=== PATIENT | male | born 1960 | race Caucasian/White ===

== ENCOUNTER 2018-02-03 09:07 | Day surgery (SDC) | payer OTHER ==
[2018-02-03] MEDS ORDERED: BENZOCAINE UNIT DOSE SPRAY HURRICAINE MM ONE (09:13)
[2018-02-03] MEDS ORDERED: MIDAZOLAM 2 MG/2 ML VIAL IVP ONE (09:13)
[2018-02-03] MEDS ORDERED: NS 500 ML IV ONE (09:13)
[2018-02-03] MEDS ORDERED: fentaNYL 100 MCG/2 ML INJ IVP ONE (09:13)
[2018-02-03] MEDS ORDERED: ATROPINE SULFATE 1 MG/10 ML SYR ONE (10:43)
[2018-02-03] MEDS ORDERED: PROPOFOL 200 MG/20 ML VIAL ONE ×3 (10:46→11:07)
--- NOTE | 2018-02-03 10:46 | PDHPUP ---
History & Physical Update H&P update statement: This history and physical update is based on an assessment of the patient which was completed after admission or registration (within 24 hours), but prior to the surgery/procedure. H&P update: H&P reviewed & patient examined, no change in patient's condition since H&P completed
--- NOTE | 2018-02-03 10:51 | PDANEPAE ---
ANE History of Present Illness here for ELEANOR ANE Past Medical History - Cardiovascular History Hx Hypertension: Yes Hx Arrhythmias: No Hx Chest Pain: No Hx Coronary Artery / Peripheral Vascular Disease: No Hx CHF / Valvular Disease: No Hx Palpitations: No Cardiovascular History Comment: history of CVA with known PFO - Pulmonary History Hx COPD: No Hx Asthma/Reactive Airway Disease: No Hx Recent Upper Respiratory Infection: No Hx Oxygen in Use at Home: No Hx Sleep Apnea: No - Neurologic History Hx Cerebrovascular Accident: Yes Hx Seizures: No Hx Dementia: No - Endocrine History Hx Diabetes: No Hypothyroid: No Hyperthyroid: No Obesity: no - Renal History Hx Renal Disorders: No - Liver History Hx Hepatic Disorders: No - Neurological & Psychiatric Hx Hx Neurological and Psychiatric Disorders: No - Cancer History Hx Cancer: No ANE Review of Systems Review of systems is: negative Review of Systems: - Exercise capacity Exercise capacity: >=4 METS ANE Patient History - Allergies Allergies/Adverse Reactions: No Known Allergies Allergy (Unverified 03/29/13 21:42) - Home Medications Home medications: home medication list seen and reviewed Home Medications: Aspirin [Aspirin 325 mg (OTC)] 325 mg PO HS 03/30/13 [Last Taken 03/29/13] Atorvastatin Calcium [Lipitor 20 mg (RX)] 20 mg PO HS 03/30/13 [Last Taken 03/29] Cholecalciferol Vit D3 [Vitamin D3 2000 units (OTC)] 2,000 units PO DAILY [Last Taken 03/29/13] Clonidine HCl 0.1 mg PO DAILY 03/30/13 [Last Taken 03/29/13] Lisinopril [Zestril 20 mg (RX)] 20 mg PO HS 03/30/13 [Last Taken 03/29/13] Lisinopril/Hctz 20/12.5MG [Zestoretic/Prinzide] 1 ea PO DAILY 03/30/13 [Last Taken 03/29/13] Multivitamins [Tab-A-Shane] 1 each PO DAILY 03/30/13 [Last Taken 03/29/13] Emmaus-3 Fatty Acids [Fish Oil 1000 mg (OTC)] 1,000 mg PO DAILY 03/30/13 [Last Taken 03/29/13] Mail Order Biller Completed 03/30/13 03/30/13 [Last Taken 03/30/13 08:17] amLODIPine BESYLATE [Norvasc] 10 mg PO HS 03/30/13 [Last Taken 03/29/13] - NPO status NPO Status: no food or drink >8 hours - Smoking Hx Smoking Status: Never smoked ANE Labs/Vital Signs - Vital Signs Vital Signs: reviewed preoperatively; see RN documention for details Height: 185.42 cm Weight: 83.007 kg ANE Physical Exam - Airway Neck exam: FROM Mallampati Score: Class 1 - Pulmonary Pulmonary: no respiratory distress - Cardiovascular Cardiovascular: regular rate and rhythym - ASA Status ASA Status: II ANE Anesthesia Plan Anesthesia Plan: GA with mask
--- NOTE | 2018-02-03 11:25 | POSTANESTH ---
Post Anesthetic Evaluation Cardiovascular Status: Normal, Stable Respiratory Status: Normal, Stable Level of Consciousness/Mental Status: Can Participate in Eval, Moderately Sleepy Pain Control: Adequate, Prn Tx Ordered Nausea/Vomiting Control: Adequate, Prn Tx Ordered Complications Possibly Related to Anesthesia: None Noted
--- NOTE | 2018-02-21 09:42 | ECHO ---
[email or web address] [address] [address] Main: [phone] Fax: Transesophageal Echocardiography Name: ODILIA QURESHI MR#: [id number] Study Date: 02/03/2018 Study Time: 10:55 AM Date of : 1960 Age: 57 year(s) Height: ( ) Weight: ( ) BSA: Gender: Male Examination: ELEANOR Indication: Evaluate for PFO Image Quality: Contrast: Requested by: Lesly Jean-Baptiste Heart Rate: Rhythm: BP: / Procedure Staff Class A Regional Truck Driver: Darek Rm RDCS Reading Physician: Lesly Jean-Baptiste MD Requesting Provider: ELEANOR Exam Details Patient Consent: Risks, alternatives of procedure explained to patient, informed consent obtained. Conclusions: Normal size left ventricle. Normal global systolic LV function. No regional wall motion abnormality. Normal size right ventricle. The left atrium is normal in size. An agitated saline study was performed and was negative for intracardiac shunting. No significant valvular disease Measurements: Chambers Valvular Assessment AV/MV Valvular Assessment TV/PV Normal Normal Normal Name Value Range Name Value Range Name Value Range Additional Measurements: Findings: Left Ventricle: Normal size left ventricle. No LV hypertrophy. Normal global systolic LV function. No regional wall motion abnormality. Right Ventricle: Normal size right ventricle. Left Atrium: Patient: ODILIA QURESHI Study Date: 02/03/2018 Page 1 of 2 10:55 AM The left atrium is normal in size. An agitated saline study was performed and was negative for intracardiac shunting. Right Atrium: The right atrium is normal in size. Mitral Valve: The mitral valve is normal in appearance and function. Aortic Valve: The aortic valve is normal in appearance and function. Tricuspid Valve: The tricuspid valve is normal in appearance and function. Pulmonic Valve: The pulmonic valve is normal in appearance and function. Aorta: The aorta is normal. Pericardium: No pericardial effusion. l1n (No Signature Object) Patient: ODILIA QURESHI Study Date: 02/03/2018 Page 2 of 2 10:55 AM [id number]
== END 2018-02-03 12:41 | disposition home or self-care (01) ==
LOC: FCATH 09:07
PROVIDERS: ATTEND Internal Medicine Cardiovascular Disease
PROC: B246ZZ4 Ultrasonography of Right and Left Heart, Transesophageal (ICD-10-PCS; principal; 2018-02-03)
DX: Q21.1 Atrial septal defect (principal); I25.10 Atherosclerotic heart disease of native coronary artery without angina pectoris; I10 Essential (primary) hypertension
CPT/HCPCS: J0461; J2704

== ENCOUNTER 2018-10-06 12:00 | Inpatient (IN) | payer OTHER ==
[2018-10-06] MEDS ORDERED: ACET/CAFFEINE/BUTA FIORICET 1 EACH TAB PO PRN (14:39)
--- NOTE | 2018-10-06 16:22 | GHP ---
POST ADMISSION PHYSICIAN EVALUATION AND REHABILITATION TREATMENT PLAN DATE OF ADMISSION: 10/06/2018 DATE OF EVALUATION: 10/06/2018 TIME OF EVALUATION: 1455. REFERRING FACILITY: [facility]. IMPAIRMENT GROUP: 1.2. DATE OF ONSET: 09/28/2018. REFERRING PHYSICIAN: Dr. Goodwin. CONSULTING PHYSICIANS: He was seen by Neurology and Neurosurgery Services. REHABILITATION DIAGNOSIS: Debility status post hemorrhagic stroke of the left temporal and parietal lobes. ETIOLOGIC DIAGNOSIS: Right body involvement (left brain). HISTORY OF PRESENT ILLNESS: This patient was admitted to [facility] on 09/28/2018, with difficulty speaking. His systolic blood pressure was in the 170s. He had brain imaging with a head and neck CT and CT angiogram, which showed an acute intraparenchymal hemorrhage in the left temporal and parietal lobes. He initially needed IV nicardipine to control his blood pressure, but subsequently his blood pressure was well controlled. In the hospital his amlodipine/olmesartan combination was discontinued. Amlodipine was increased from 5 mg to 10 mg daily and losartan was initiated at 25 mg daily. Once he was cleared by Neurosurgery, aspirin was resumed. He had been taking it previously and it was resumed at 81 mg daily. He was otherwise medically stable and ready for rehabilitation. LABS AND STUDIES IN THE HOSPITAL: On admission, CBC was normal. Troponin was negative. Comprehensive metabolic panel revealed normal renal function, electrolytes, and liver functions. MRI of the brain on 09/29/2018, showed left temporal parietal parenchymal hematoma measuring 3.5 x 6.1 x 4 cm. It appeared to be benign with no suggestion of underlying mass or vascular malformation. There was a small patch of acute to subacute ischemia in the left parietal periventricular white matter adjacent to the hemorrhage. There were 3 foci of acute to subacute ischemia in the left frontal lobe concerning for embolic infarcts. Septic emboli were considered to be in the differential and there was a small volume of intraventricular hemorrhage in the occipital horns. Laboratory studies most recently that I have available were on 10/04/2018. A basic metabolic profile was done. He had a slightly low potassium at 3.4 and he had a slightly elevated blood urea nitrogen at 22. Otherwise, renal function and electrolytes were normal. Blood cultures were drawn due to the concern for septic emboli and these remained sterile. PRECAUTIONS: He has aspiration precautions. ACTIVE COMORBIDITIES: He has no active tier 1, tier 2 or tier 3 comorbidities. PAST MEDICAL HISTORY: 1. Basal ganglia cerebrovascular accident. 2. Hypertension. 3. Kidney stone. 4. Rosacea. 5. Solitary thyroid nodule. 6. Otitis externa. PAST SURGICAL HISTORY: He had an inguinal hernia repair, a lithotripsy and tonsillectomy and adenoidectomy. PRE-HOSPITAL MEDICATIONS: 1. Aspirin of unknown dose. 2. Amlodipine/olmesartan 5 mg/20 mg daily. 3. Atorvastatin 20 mg daily. 4. Levothyroxine 75 mcg daily. 5. Multivitamin with folic acid. 6. Angie-3 fatty acids daily. ADMISSION MEDICATIONS: 1. Fioricet 1 p.o. q.4 hours p.r.n. 2. Acetaminophen 500 mg p.o. three times daily p.r.n. 3. Amlodipine 10 mg p.o. daily. 4. Aspirin 81 mg p.o. daily. 5. Atorvastatin 20 mg p.o. daily. 6. Levothyroxine 75 mcg p.o. daily. 7. Losartan 25 mg p.o. daily. 8. Angie-3 fatty acids 1000 mg p.o. daily. ALLERGIES: There are no known drug allergies. PSYCHOSOCIAL HISTORY: He is . He lives with his . He works from home in [employer]. He is a nonsmoker. He uses occasional alcohol. FAMILY HISTORY: His father had lung cancer. There is high blood pressure in his siblings. REVIEW OF SYSTEMS: He reports double vision intermittently. It is relieved by covering either eye. He otherwise denies vision changes. He has headaches which can be severe. There was nausea with the headaches and he was briefly treated with a scopolamine patch, but it was discontinued. There was no vomiting. He denies fevers or chills. He denies weight change. He denies nausea, vomiting, constipation, or diarrhea. He denies cough or dyspnea. He denies weakness, numbness or tingling of the extremities. He is not aware of difficulty swallowing. He is not in pain. He is aware of difficulty with expressive language. Otherwise, a 10-point review of systems is negative. PHYSICAL EXAM: VITAL SIGNS: Blood pressure is 162/96, heart rate is 53, respiratory rate is 18, oxygen saturation is 95% on room air, temperature is 37.1 degrees centigrade. His weight is 84.4 kg for a body mass index of 24.5. GENERAL: This is a well-nourished, well-developed man, sitting in a chair, dressed in street clothes, cooperative and in no acute distress. HEENT: Extraocular movements are intact. Pupils are equal, round, reactive to light. Mucous membranes are moist. Dentition is in good condition. He has a moderately crowded airway, Mallampati class 3. NECK: Supple. HEART: There is a regular rate and rhythm. There is a 1/6 to 2/6 murmur audible at the right sternal border. There is no jugular venous distention and no edema. LUNGS: Clear to auscultation bilaterally. ABDOMEN: Soft, nontender, nondistended with normoactive bowel sounds and no hepatosplenomegaly. EXTREMITIES: There is no cyanosis, clubbing, or edema. NEUROLOGIC: He is alert and oriented x3. Cranial nerves 2-12 are grossly intact. No focal weakness. Sensation is intact to light touch. There is no extinction to double simultaneous stimulation. Finger-nose testing is normal bilaterally. He appears to have loss of peripheral vision in all hunter, possibly more prominent in the right lower quadrant. There is very mild pronator drift of the right upper extremity. CURRENT LEVEL OF FUNCTION PER THE PRE-ADMISSION SCREEN: Regarding diet, feeding , and swallowing, he was on a regular diet with thin liquids, but he was to remain upright for 20-30 minutes after meals. Grooming was done with standby assist with no device. He required minimal to moderate cues for safety. Bed mobility was done with standby assist. Transfers required contact guard assist with no device or standby assist with a 4-wheeled walker. He scored 39/56 on the Tamayo balance inventory. His endurance was fair. He was able to ambulate 100 feet with minimal assist and no device or 1200 feet standby assist with a 4- wheeled walker. He had loss of balance to the right with multi tasking, head turns, or pivoting on the right foot. He was able to climb and descend 2 steps with standby assist using a rail. He had expressive aphasia and mild receptive aphasia. There was a right footdrop. On today's exam, there are no significant changes from the preadmission screen. IMPRESSION: This is a 58-year-old man who had a prior basal ganglia stroke in 2011 on the left side. He had hypertension which he reports was well controlled and he was taking aspirin as well as atorvastatin. However, he had acute symptoms of difficulty speaking. He was evaluated at [facility] and diagnosed with a left temporal and parietal hemorrhagic stroke on 2017. His most significant sequela of the stroke is expressive aphasia. He also has balance impairment and left footdrop. He has had titration of antihypertensives, but continues to have an elevated blood pressure. reports that he has had echocardiograms x3 since his initial stroke. Two of them were transthoracic and did not show any abnormalities, and 1 was transesophageal and showed a small patent foramen ovale. MR imaging raised the possibility of an embolic CVA and the differential diagnosis included septic emboli. Blood cultures ruled out any systemic infection. Normal white blood cell count was also reassuring in that regard. He was followed with serial brain imaging and cleared by Neurosurgery for any surgical indication. Aspirin was restarted. He was medically stable and ready for inpatient rehabilitation. His goal is to complete a rehabilitation stay and then return home with his family and supportive services. For a safe discharge he will need to complete basic expressive language tasks with 80% accuracy. He will need to achieve independence with grooming, bed mobility and eating. He will need to achieve modified independence for dressing, transfers and ambulation with the least restrictive device. He will need to be able to negotiate a flight of stairs with modified independence. He will need to have adequate control of his blood pressure. He will have therapy with physical therapy, occupational therapy, and speech and language pathology for 60 minutes per day for each discipline on 5-7 days of the week. His expected duration of stay is 10-14 days. It is expected that upon discharge he will continue to benefit from home health services including nursing, social work, OT and PT as well as a stroke support group. PLAN: 1. Hemorrhagic cerebrovascular accident of the left parietal and temporal lobes on 09/28/2018, with expressive aphasia, right foot drop and balance impairment. PT and OT to optimize mobility and activities of daily living toward the independent to modified independent level. 2. Expressive aphasia. Assessment and treatment per Speech and Language Pathology. 3. Hypertension with an elevated blood pressure upon arrival at the hospital. Continue amlodipine 10 mg daily, and I will add losartan at 25 mg at bedtime starting this evening. If this achieves adequate blood pressure control it can probably be consolidated into a single daily dose of 50 mg. Continue to monitor and adjust blood pressure medications as indicated. 4. Secondary prophylaxis of cerebrovascular accident. Continue blood pressure control, atorvastatin and aspirin. Given conflicting history regarding patent foramen ovale, consider further workup with Cardiology after discharge to evaluate whether he would benefit from a procedure regarding the patent foramen ovale. 5. Headaches. He has been prescribed Fioricet. If he has persistent headaches , consider initiating a preventive medications such as amitriptyline or nortriptyline at bedtime. 6. Hypothyroidism. Continue levothyroxine. FOLLOWUP: He will need to see his PCP after discharge. There are no specific referrals in the discharge paperwork. He should consider followup with Cardiology as well as Neurology. He should have a repeat MRI of the brain in about 1 month and result can be evaluated by the neurosurgeon who is following him; in the hospital it was Dr. Loyd. /[id number]/MODL MTDD
--- NOTE | 2018-10-06 17:20 | PDOREHIP ---
Admission [facility] - Admission - 3 Day Assessment Period Admission Date/Day 1: 10/06/18 Day 2: 10/07/18 Day 3: 10/08/18 - Active Diagnoses Comorbidities and Co-existing Conditions at Admission: 22202. None of the Above - Skin Conditions Unhealed Pressure Ulcer (1 or more/Stage 1 or >)-Admission: 0. No # Stage 1 Pressure Ulcers-Admission: 0 # Stage 2 Pressure Ulcers-Admission: 0 # Stage 3 Pressure Ulcers-Admission: 0 # Stage 4 Pressure Ulcers-Admission: 0 # Unstageable Pressure Ulcers (Non-remove Dress)-Admission: 0 # Unstageable Pressure Ulcers (Slough/Eschar)-Admission: 0 # Unstageable Pressure Ulcers (Deep Tissue Injury)-Admission: 0
[2018-10-06] MEDS: ACETAMINOPHEN 500 MG TAB PO PRN (19:32)
[2018-10-06] MEDS: LOSARTAN POTASSIUM 25 MG TAB PO SCH (20:00)
[2018-10-07] MEDS: LEVOTHYROXINE 75 MCG TAB PO SCH (05:54)
[2018-10-07] MEDS: LOSARTAN POTASSIUM 25 MG TAB PO SCH ×2 (08:39→19:57)
[2018-10-07] MEDS: ATORVASTATIN CALCIUM 20 MG TAB PO SCH (08:39)
[2018-10-07] MEDS: OMEGA-3 FATTY ACIDS 1,000 MG CAP PO SCH (08:39)
[2018-10-07] MEDS: ASPIRIN EC 81 MG TAB PO SCH (08:40)
[2018-10-07] MEDS ORDERED: Herbals/Supplements -Info Only PO SCH (09:00)
--- NOTE | 2018-10-07 09:31 | SOAPPROG ---
SOAP Progress Note Assessment/Plan: Assessment: Hemorrhagic cerebrovascular accident of the left parietal and temporal lobes on 09/28/2018 resulting in expressive aphasia and impaired balance. Physical occupational therapy to optimize mobility and activities of daily living towards the independent to modified independent level. Expressive aphasia. Assessment and treatment per speech and language pathology Hypertension. Current blood pressure medications include amlodipine 10 mg daily and losartan 25 mg twice daily. This morning's blood pressure 159/96. Losartan was increased to 25 twice daily yesterday so will continue to monitor for now but may need to increase dosage of BP meds if blood pressure does not normalize in the next 24-48 hours. Secondary prophylaxis of cerebrovascular accident. Continue blood pressure control, atorvastatin and aspirin. Given conflicting history regarding patent foramen ovale, consider further workup with Cardiology after discharge to evaluate whether he would benefit from a procedure regarding possible patent foramen ovale. Headaches. He has been prescribed Fioricet. Will continue to monitor. Consider adding amitriptyline or nortriptyline at bedtime if headaches persist. Hypothyroidism. Continue levothyroxine. Footdrop-no evidence on this morning's exam of right foot drop. Follow-up: He will need to have follow-up with his primary care physician after discharge. Consider cardiology follow-up for further evaluation of patent foramen ovale. Follow-up with neurology. Repeat MRI of the brain in about 4 weeks. Plan: 10/07/18 09:25 Subjective: No problems reported by nursing staff. He denies headaches. He does report some frustration regarding expressive aphasia. Objective: Vital Signs Temp Pulse Resp BP Pulse Ox 36.8 C 57 L 18 159/96 H 96 10/07/18 08:35 10/07/18 08:35 10/07/18 08:35 10/07/18 08:40 10/07/18 08:35 10/06/18 10/07/18 10/08/18 05:59 05:59 05:59 Intake Total 440 Balance 440 Physical Exam - Physical Exam General Appearance: WD/WN, alert, no apparent distress Respiratory: lungs clear, normal breath sounds Abdomen: non-tender, soft Skin: normal color, warm/dry Extremities: No swelling, No Keerthi's sign Neuro/Psych: alert, speech abnormalities (Expressive aphasia), No oriented x 3, No motor weakness (On manual muscle testing while seated he has grossly normal upper and lower extremity strength. No evidence of right foot drop) ICD10 Worksheet Patient Problems: Problems Problem Status Onset Hemorrhagic cerebrovascular accident (CVA) Acute
[2018-10-08] MEDS: LEVOTHYROXINE 75 MCG TAB PO SCH (06:17)
[2018-10-08] MEDS: ATORVASTATIN CALCIUM 20 MG TAB PO SCH (10:04)
[2018-10-08] MEDS: LOSARTAN POTASSIUM 25 MG TAB PO SCH ×2 (10:05→20:03)
[2018-10-08] MEDS: OMEGA-3 FATTY ACIDS 1,000 MG CAP PO SCH (10:05)
[2018-10-08] MEDS: ASPIRIN EC 81 MG TAB PO SCH (10:07)
--- NOTE | 2018-10-08 11:49 | SOAPPROG ---
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 Physical occupational therapy to optimize mobility and activities of daily living towards the independent to modified independent level. Already making significant gains in ambulation, currently ambulating without assistive devices. Physical therapy reports he has made significant gains in balance and passed his Tamayo test today. Showing better concentration in performing fine motor skills and occupational therapy Expressive and receptive aphasia. Assessment and treatment per speech and language pathology Hypertension. Current blood pressure medications include amlodipine 10 mg daily and losartan 25 mg twice daily. This morning's blood pressure 122/88. Losartan was increased to [address] Morgan. Will continue to monitor for now but may need to increase dosage of BP meds if blood pressure does not normalize in the next 24-48 hours. Secondary prophylaxis of cerebrovascular accident. Continue blood pressure control, atorvastatin and aspirin. Given conflicting history regarding patent foramen ovale, consider further workup with Cardiology after discharge to evaluate whether he would benefit from a procedure regarding possible patent foramen ovale. Headaches. No complaints of headache today He has been prescribed Fioricet. Will continue to monitor. Consider adding amitriptyline or nortriptyline at bedtime if headaches persist. Hypothyroidism. Continue levothyroxine. Footdrop-no evidence on this morning's exam of right foot drop. Follow-up: He will need to have follow-up with his primary care physician after discharge. Consider cardiology follow-up for further evaluation of patent foramen ovale. Follow-up with neurology. Repeat MRI of the brain in about 4 weeks. Plan: 10/07/18 09:25 10/08/18 11:46 Subjective: Patient reports feeling a little bit fatigued after physical therapy this morning. Denies headache. No problems reported by nursing staff. Objective: Vital Signs Temp Pulse Resp BP Pulse Ox 37.1 C 58 L 16 122/88 H 93 10/08/18 07:39 10/08/18 07:39 10/08/18 07:39 10/08/18 07:39 10/08/18 07:39 10/07/18 10/08/18 10/09/18 05:59 05:59 05:59 Intake Total 440 900 610 Balance 440 900 610 Physical Exam - Physical Exam General Appearance: WD/WN, alert, no apparent distress EENT: PERRL/EOMI Respiratory: lungs clear, normal breath sounds Cardiac/Chest: No edema Abdomen: non-tender, soft Neuro/Psych: alert, normal mood/affect, cognition abnormalities, speech abnormalities (Expressive and receptive aphasia.) ICD10 Worksheet Patient Problems: Problems Problem Status Onset Hemorrhagic cerebrovascular accident (CVA) Acute
[2018-10-09] MEDS: LEVOTHYROXINE 75 MCG TAB PO SCH (06:16)
[2018-10-09] MEDS: ASPIRIN EC 81 MG TAB PO SCH (08:43)
[2018-10-09] MEDS: ATORVASTATIN CALCIUM 20 MG TAB PO SCH (08:44)
[2018-10-09] MEDS: OMEGA-3 FATTY ACIDS 1,000 MG CAP PO SCH (08:44)
[2018-10-09] MEDS: LOSARTAN POTASSIUM 25 MG TAB PO SCH ×2 (08:49→19:56)
--- NOTE | 2018-10-09 12:26 | SOAPPROG ---
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 Physical occupational therapy to optimize mobility and activities of daily living towards the independent to modified independent level. Already making significant gains in ambulation, currently ambulating without assistive devices. Physical therapy reports he has made significant gains in balance and passed his Tamayo test today. Showing better concentration in performing fine motor skills and occupational therapy. FIM SCORE 91 Expressive and receptive aphasia. PATIENT HAS SEVERE EXPRESSIVE APHASIA AND MODERATE RECEPTIVE APHASIA. WORD APRAXIAS. DESI OG IS OBSERVED. PATIENT MAY HAVE HEARING LOSS OF HIGHER FREQUENCIES. TEAM MEETING TODAY SPEECH THERAPY SUGGESTED THAT HE WILL NEED INTENSIVE SPEECH THERAPY FOR A LONG TIME FOLLOWING DISCHARGE. Hypertension. BLOOD PRESSURE THIS MORNING 130/74 Secondary prophylaxis of cerebrovascular accident. Continue blood pressure control, atorvastatin and aspirin. Given conflicting history regarding patent foramen ovale, consider further workup with Cardiology after discharge to evaluate whether he would benefit from a procedure regarding possible patent foramen ovale. Headaches. No complaints of headache today He has been prescribed Fioricet. Will continue to monitor. Consider adding amitriptyline or nortriptyline at bedtime if headaches persist. POSSIBLE RIGHT VISUAL FIELD DEFICIT VERSES DECREASED ACUITY. WITH VISUAL FIELD TESTING TODAY POSSIBLE RIGHT UPPER AND LATERAL VISUAL FIELD DEFICIT BUT THIS MAY BE ALSO DECREASED ACUITY. DIFFICULT TO ASSESS THAT THIS PATIENT HAS RECEPTIVE AND EXPRESSIVE APHASIA. Hypothyroidism. Continue levothyroxine. Follow-up: He will need to have follow-up with his primary care physician after discharge. Consider cardiology follow-up for further evaluation of patent foramen ovale. Follow-up with neurology. Repeat MRI of the brain in about 4 weeks. Plan: 10/07/18 09:25 10/08/18 11:46 10/09/18 12:23 Subjective: NO PROBLEMS REPORTED BY NURSING STAFF. PATIENT HAS EXPRESSIVE AND RECEPTIVE APHASIA. HE INDICATES HE DOES NOT HAVE HEADACHES. Objective: Vital Signs Temp Pulse Resp BP Pulse Ox 37.0 C 54 L 15 130/74 H 96 10/09/18 06:21 10/09/18 08:46 10/09/18 06:21 10/09/18 08:49 10/09/18 06:21 10/08/18 10/09/18 10/10/18 05:59 05:59 05:59 Intake Total 900 1210 660 Balance 900 1210 660 Physical Exam - Physical Exam General Appearance: WD/WN, alert, no apparent distress EENT: other (POSSIBLE RIGHT UPPER LATERAL VISUAL FIELD DEFICIT VERSES DECREASED ACUITY) Respiratory: lungs clear, normal breath sounds Abdomen: normal bowel sounds, non-tender, soft Skin: normal color, warm/dry Neuro/Psych: aphasia (EXPRESSIVE AND RECEPTIVE. WORD APRAXIAS) ICD10 Worksheet Patient Problems: Problems Problem Status Onset Hemorrhagic cerebrovascular accident (CVA) Acute
[2018-10-10] MEDS: ACETAMINOPHEN 500 MG TAB PO PRN ×2 (01:34→20:50)
[2018-10-10] MEDS: LEVOTHYROXINE 75 MCG TAB PO SCH (07:12)
[2018-10-10] MEDS: LOSARTAN POTASSIUM 25 MG TAB PO SCH ×2 (08:12→20:50)
[2018-10-10] MEDS: ASPIRIN EC 81 MG TAB PO SCH (08:12)
[2018-10-10] MEDS: OMEGA-3 FATTY ACIDS 1,000 MG CAP PO SCH (08:12)
[2018-10-10] MEDS: ATORVASTATIN CALCIUM 20 MG TAB PO SCH (08:12)
--- NOTE | 2018-10-10 11:26 | SOAPPROG ---
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 Physical occupational therapy to optimize mobility and activities of daily living towards the independent to modified independent level. HE HAS MADE SIGNIFICANT GAINS IN AMBULATION AND IS AMBULATING WITHOUT ASSISTIVE DEVICES. Physical therapy reports he has made significant gains in balance and passed his Tamayo test today. Showing better concentration in performing fine motor skills and occupational therapy. FIM SCORE 91 Expressive and receptive aphasia. PATIENT HAS SEVERE EXPRESSIVE APHASIA AND MODERATE RECEPTIVE APHASIA. WORD APRAXIAS. Neologisms. PATIENT MAY HAVE HEARING LOSS OF HIGHER FREQUENCIES. TEAM MEETING yesterday- SPEECH THERAPY SUGGESTED THAT HE WILL NEED INTENSIVE SPEECH THERAPY FOR A LONG TIME FOLLOWING DISCHARGE. 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 Physical therapy reports this is improved with piriformis stretching, soft tissue mobilization, hamstring stretching and reciprocal inhibition with quadriceps. Hypertension. BLOOD PRESSURE THIS MORNING 118/86. Secondary prophylaxis of cerebrovascular accident. Continue blood pressure control, atorvastatin and aspirin. Given conflicting history regarding patent foramen ovale, consider further workup with Cardiology after discharge to evaluate whether he would benefit from a procedure regarding possible patent foramen ovale. Headaches. No complaints of headache today He has been prescribed Fioricet. Will continue to monitor. Consider adding amitriptyline or nortriptyline at bedtime if headaches persist. POSSIBLE RIGHT VISUAL FIELD DEFICIT VERSES DECREASED ACUITY. WITH VISUAL FIELD TESTING TODAY POSSIBLE RIGHT UPPER AND LATERAL VISUAL FIELD DEFICIT BUT THIS MAY BE ALSO DECREASED ACUITY. DIFFICULT TO ASSESS THAT THIS PATIENT HAS RECEPTIVE AND EXPRESSIVE APHASIA. Hypothyroidism. Continue levothyroxine. Follow-up: He will need to have follow-up with his primary care physician after discharge. Consider cardiology follow-up for further evaluation of patent foramen ovale. Follow-up with neurology. Repeat MRI of the brain in about 4 weeks. Subjective: NO COMPLAINTS PER PATIENT. NO COMPLAINTS OR CONCERNED CT OF NURSING OR THERAPY STAFF. Objective: Vital Signs Temp Pulse Resp BP Pulse Ox 36.6 C 54 L 14 111/86 H 95 10/10/18 07:13 10/10/18 07:13 10/10/18 07:13 10/10/18 07:13 10/10/18 07:13 10/09/18 10/10/18 10/11/18 05:59 05:59 05:59 Intake Total 1210 1900 340 Balance 1210 1900 340 Physical Exam - Physical Exam General Appearance: WD/WN, alert, no apparent distress Respiratory: lungs clear, normal breath sounds Abdomen: normal bowel sounds, non-tender, soft Skin: normal color, warm/dry Extremities: No swelling, No Keerthi's sign Neuro/Psych: alert, No motor weakness (HE IS AMBULATING WITHOUT ASSISTIVE DEVICES. HE DEMONSTRATES NORMAL POSTURE WITH A NICE STEADY GAIT. NO OBVIOUS ATAXIA. HAS EXPRESSIVE AND RECEPTIVE APHASIA BUT THE SEEM TO BE IMPROVING SOMEWHAT.) ICD10 Worksheet Patient Problems: Problems Problem Status Onset Hemorrhagic cerebrovascular accident (CVA) Acute
[2018-10-11] MEDS: LEVOTHYROXINE 75 MCG TAB PO SCH (06:57)
[2018-10-11] MEDS: OMEGA-3 FATTY ACIDS 1,000 MG CAP PO SCH (08:47)
[2018-10-11] MEDS: ASPIRIN EC 81 MG TAB PO SCH (08:47)
[2018-10-11] MEDS: LOSARTAN POTASSIUM 25 MG TAB PO SCH ×2 (08:47→20:57)
[2018-10-11] MEDS: ATORVASTATIN CALCIUM 20 MG TAB PO SCH (08:47)
--- NOTE | 2018-10-11 10:16 | SOAPPROG ---
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 Physical occupational therapy to optimize mobility and activities of daily living towards the independent to modified independent level. HE HAS MADE SIGNIFICANT GAINS IN AMBULATION AND IS AMBULATING WITHOUT ASSISTIVE DEVICES. Physical therapy reports he has made significant gains in balance and passed his MOST RECENT JARRETT TEST. Showing better concentration in performing fine motor skills and occupational therapy. FIM SCORE 91 Expressive and receptive aphasia. PATIENT HAS SEVERE EXPRESSIVE APHASIA AND MODERATE RECEPTIVE APHASIA. WORD APRAXIAS. Neologisms. PATIENT MAY HAVE HEARING LOSS OF HIGHER FREQUENCIES. TEAM MEETING FRIDAY- SPEECH THERAPY SUGGESTED THAT HE WILL NEED INTENSIVE SPEECH THERAPY FOR A LONG TIME FOLLOWING DISCHARGE. Left hip pain-piriformis syndrome with associated hamstring tightness. Physical therapy reports this is improved with piriformis stretching, soft tissue mobilization, hamstring stretching and reciprocal inhibition with quadriceps. Hypertension. Continue to monitor blood pressures Q shift Secondary prophylaxis of cerebrovascular accident. Continue blood pressure control, atorvastatin and aspirin. Given conflicting history regarding patent foramen ovale, consider further workup with Cardiology after discharge to evaluate whether he would benefit from a procedure regarding possible patent foramen ovale. Headaches. No complaints of headache today He has been prescribed Fioricet. Will continue to monitor. Consider adding amitriptyline or nortriptyline at bedtime if headaches persist. POSSIBLE RIGHT VISUAL FIELD DEFICIT VERSES DECREASED ACUITY. WITH VISUAL FIELD TESTING TODAY POSSIBLE RIGHT UPPER AND LATERAL VISUAL FIELD DEFICIT BUT THIS MAY BE ALSO DECREASED ACUITY. DIFFICULT TO ASSESS THAT THIS PATIENT HAS RECEPTIVE AND EXPRESSIVE APHASIA. Hypothyroidism. Continue levothyroxine. Follow-up: He will need to have follow-up with his primary care physician after discharge. Consider cardiology follow-up for further evaluation of patent foramen ovale. Follow-up with neurology. Repeat MRI of the brain in about 4 weeks. 10/11/18 10:15 Subjective: NO COMPLAINTS PER PATIENT OR NURSING STAFF Objective: Vital Signs Temp Pulse Resp BP Pulse Ox 36.7 C 62 15 131/80 H 95 10/10/18 20:00 10/10/18 20:00 10/10/18 20:00 10/11/18 08:52 10/10/18 20:00 10/10/18 10/11/18 10/12/18 05:59 05:59 05:59 Intake Total 1900 1180 Balance 1900 1180 Physical Exam - Physical Exam General Appearance: WD/WN, alert, no apparent distress Respiratory: lungs clear, normal breath sounds, No respiratory distress Cardiac/Chest: regular rate, rhythm, No edema Abdomen: non-tender, soft Neuro/Psych: no motor/sensory deficits, aphasia, speech abnormalities ( AMBULATES WITHOUT ASSISTIVE DEVICES. GROSSLY NORMAL UPPER AND LOWER EXTREMITY SENSORY AND MOTOR EXAM. POSSIBLE RIGHT LATERAL VISUAL FIELD DEFICIT), other ICD10 Worksheet Patient Problems: Problems Problem Status Onset Hemorrhagic cerebrovascular accident (CVA) Acute
[2018-10-11] MEDS: ACETAMINOPHEN 500 MG TAB PO PRN (20:57)
[2018-10-12] MEDS: LEVOTHYROXINE 75 MCG TAB PO SCH (06:38)
[2018-10-12] MEDS: OMEGA-3 FATTY ACIDS 1,000 MG CAP PO SCH (08:23)
[2018-10-12] MEDS: ATORVASTATIN CALCIUM 20 MG TAB PO SCH (08:24)
[2018-10-12] MEDS: ASPIRIN EC 81 MG TAB PO SCH (08:24)
[2018-10-12] MEDS: LOSARTAN POTASSIUM 25 MG TAB PO SCH ×2 (08:24→20:26)
--- NOTE | 2018-10-12 10:53 | SOAPPROG ---
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 * Initial functional independence measure 91 on 10/09/2018. Independent or supervision level for mobility and activities of daily living. Significant deficits in communication. * Continue PT and OT to optimize mobility and activities of daily living toward the independent to modified independent level. Severe expressive and moderate receptive aphasia. * Continue BB SHOT PACKER. Showing improvement. Hypertension with an elevated blood pressure upon arrival at the hospital. * Continue amlodipine 10 mg daily. * Was on losartan 25 mg daily when admitted from the hospital; this was increased to 25 mg twice daily on 10/06/2018. Will consolidate to 50 mg q.day starting 10/13/2018. Continue to monitor. Secondary prophylaxis of cerebrovascular accident. Continue blood pressure control, atorvastatin and aspirin. Given conflicting history regarding patent foramen ovale, consider further workup with Cardiology after discharge to evaluate whether he would benefit from a procedure regarding the patent foramen ovale. Headaches. He has been prescribed Fioricet but has not used it since admission. Continue to monitor. Using acetaminophen as needed. Hypothyroidism. Continue levothyroxine. 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 Son with disability lives at home as well. works outside of the home during the day. Tentative discharge date set for 10/16/2018. Will have intensive BB SHOT PACKER after discharge. FOLLOWUP: He will need to see his PCP after discharge. There are no specific referrals in the discharge paperwork. He should consider followup with Cardiology as well as Neurology. He should have a repeat MRI of the brain in about 1 month and result can be evaluated by the neurosurgeon Dr. Loyd. 10/12/18 11:46 Subjective: Expresses some frustration regarding the slow recovery of expressive language. Otherwise without complaints. Sleeping well, not in pain. He is independent in his room regarding mobility and activities of daily living. Objective: Vital Signs Temp Pulse Resp BP Pulse Ox 36.3 C 58 L 18 129/94 H 95 10/12/18 08:12 10/12/18 08:12 10/12/18 08:12 10/12/18 08:24 10/11/18 18:13 10/11/18 10/12/18 10/13/18 05:59 05:59 05:59 Intake Total 1180 1160 360 Balance 1180 1160 360 Physical Exam - Physical Exam General Appearance: WD/WN, alert, no apparent distress Respiratory: normal breath sounds, No crackles, No rhonchi, No wheezing Cardiac/Chest: regular rate, rhythm, No diastolic murmur, No systolic murmur Skin: normal color, warm/dry Neuro/Psych: no motor/sensory deficits, alert, normal mood/affect, oriented x 3 , aphasia (Expressive) ICD10 Worksheet Patient Problems: Problems Problem Status Onset Hemorrhagic cerebrovascular accident (CVA) Acute
[2018-10-13] MEDS: LEVOTHYROXINE 75 MCG TAB PO SCH (06:06)
[2018-10-13] MEDS: ATORVASTATIN CALCIUM 20 MG TAB PO SCH (08:57)
[2018-10-13] MEDS: ASPIRIN EC 81 MG TAB PO SCH (08:57)
[2018-10-13] MEDS: OMEGA-3 FATTY ACIDS 1,000 MG CAP PO SCH (08:58)
[2018-10-13] MEDS: LOSARTAN POTASSIUM 50 MG TAB PO SCH (08:58)
--- NOTE | 2018-10-13 09:34 | SOAPPROG ---
SOAP Progress Note Assessment/Plan: 58-year-old male with left temporal and parietal intraparenchymal hemorrhage on 09/28/2018 presented with difficulty speaking. Impairments in mobility, self- care, communication and cognition. Today's update: Patient doing well with therapy, in the independent living suite on the unit. He feels he is making gradual improvements all around. He feels his sleep is somewhat impacted by his lower overall level of activity compared to his baseline but does not want any additional pharmacologic treatment. Blood pressure control today, continue monitoring. Continue the rehabilitation plan. A total of 15 min was spent on the floor in the care of the patient, the majority of which was spent in counseling coordination of care regarding rehabilitation progress incoordination with therapist. Additional issues reviewed without change today include hypothyroidism, headaches, secondary prophylaxis. 10/13/18 09:26 Subjective: Chief complaint: Rehab progress No acute events overnight. Patient denies any new shortness of breath or chest pain, no new numbness, tingling, or weakness. States he is not sleeping quite as well as at home but his activities lower as well and he does not want additional pharmacological treatment. He feels that his speech and cognition is improving, overall his course is improving. He has no particular concerns today, looking forward to getting home. Objective: Vital Signs Temp Pulse Resp BP Pulse Ox 36.5 C 55 L 18 130/80 H 95 10/13/18 06:56 10/13/18 06:56 10/13/18 06:56 10/13/18 08:58 10/13/18 06:56 10/12/18 10/13/18 10/14/18 05:59 05:59 05:59 Intake Total 1160 920 Balance 1160 920 Physical Exam - Physical Exam General Appearance: WD/WN, alert, no apparent distress EENT: No scleral icterus (R), No scleral icterus (L) Respiratory: No respiratory distress, No accessory muscle use Skin: normal color, warm/dry, No cyanosis, No diaphoresis Neuro/Psych: alert, normal mood/affect, speech abnormalities (Word-finding difficulties, mild expressive aphasia) ICD10 Worksheet Patient Problems: Problems Problem Status Onset Hemorrhagic cerebrovascular accident (CVA) Acute
[2018-10-14] MEDS: LEVOTHYROXINE 75 MCG TAB PO SCH (05:37)
[2018-10-14] MEDS: ATORVASTATIN CALCIUM 20 MG TAB PO SCH (08:06)
[2018-10-14] MEDS: ASPIRIN EC 81 MG TAB PO SCH (08:06)
[2018-10-14] MEDS: LOSARTAN POTASSIUM 50 MG TAB PO SCH (08:06)
[2018-10-14] MEDS: OMEGA-3 FATTY ACIDS 1,000 MG CAP PO SCH (08:06)
--- NOTE | 2018-10-14 14:51 | SOAPPROG ---
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 * Initial functional independence measure 91 on 10/09/2018. Improved to 105 as of 10/14/2018. He is now independent in his room and on the unit 24 hr today. He is independent with activities of daily living. He DD meal preparation with distance supervision. He has a right visual field deficit. * Continue PT and OT to optimize mobility and activities of daily living toward the independent to modified independent level. Severe expressive and moderate receptive aphasia. * Continue SAMPLE FINISHER. Showing improvement. Social speech is much improved. He can read single words but has difficulty with sentences or paragraphs. He will need assistance for medication management. Hypertension with an elevated blood pressure upon arrival at the hospital. * Continue amlodipine 10 mg daily. * Was on losartan 25 mg daily when admitted from the hospital; this was increased to 25 mg twice daily on 10/06/2018. Consolidated to 50 mg q.day starting 10/13/2018. Continue to monitor. Secondary prophylaxis of cerebrovascular accident. Continue blood pressure control, atorvastatin and aspirin. Given conflicting history regarding patent foramen ovale, consider further workup with Cardiology after discharge to evaluate whether he would benefit from a procedure regarding the patent foramen ovale. Headaches. He has been prescribed Fioricet but has not used it since admission ; discontinue 10/14/2018. Continue to monitor. Using acetaminophen as needed. Hypothyroidism. Continue levothyroxine. DISPOSITION: Attended staffing, 15 min. Discussed with case management, nursing, dietitian, PT, OT, SAMPLE FINISHER. Attended family meeting, patient and present. 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 Son with disability lives at home as well. works outside of the home during the day. Discharge date set for 10/16/2018. Will have intensive SAMPLE FINISHER after discharge. FOLLOWUP: He will need to see his PCP after discharge. There are no specific referrals in the discharge paperwork. He should consider followup with Cardiology as well as Neurology. He should have a repeat MRI of the brain in about 1 month and result can be evaluated by the neurosurgeon Dr. Loyd. He will have a Neuro-Ophthalmology referral regarding his visual field deficit. 10/14/18 14:44 Subjective: No complaints. expresses concern regarding blood pressure management. He denies pain, cough, dyspnea, fevers, chills. Objective: Vital Signs Temp Pulse Resp BP Pulse Ox 36.7 C 64 15 141/82 H 94 10/14/18 06:19 10/14/18 06:19 10/14/18 06:19 10/14/18 06:19 10/14/18 06:19 10/13/18 10/14/18 10/15/18 05:59 05:59 05:59 Intake Total 920 440 360 Balance 920 440 360 - Time Spent With Patient Time Spent With Patient: Greater than 35 min floor time today, including more than % of time in coordination of care during staffing and counseling patient and during family meeting. Physical Exam - Physical Exam General Appearance: WD/WN, alert, no apparent distress Respiratory: normal breath sounds, No crackles, No rhonchi, No wheezing Cardiac/Chest: regular rate, rhythm, No edema, No diastolic murmur, No systolic murmur Skin: normal color, warm/dry Neuro/Psych: no motor/sensory deficits, alert, normal mood/affect, aphasia ( Expressive) ICD10 Worksheet Patient Problems: Problems Problem Status Onset Hemorrhagic cerebrovascular accident (CVA) Acute
[2018-10-15] MEDS: LEVOTHYROXINE 75 MCG TAB PO SCH (06:59)
--- NOTE | 2018-10-15 08:04 | PDOREHIP ---
Admission [facility] - Admission - 3 Day Assessment Period Admission Date/Day 1: 10/06/18 Day 2: 10/07/18 Day 3: 10/08/18 - Active Diagnoses Comorbidities and Co-existing Conditions at Admission: 77748. None of the Above Discharge [facility] - Discharge - 3 Day Assessment Period 2 Days Prior to Anticipated Discharge Date: 10/14/18 1 Day Prior to Anticipated Discharge Date: 10/15/18 Anticipated Discharge Date: 10/16/18 - Discharge Skin Conditions Unhealed Pressure Ulcer (1 or more/Stage 1 or >)-Discharge: 0. No # Stage 1 Pressure Ulcers-Discharge: 0 # Stage 2 Pressure Ulcers-Discharge: 0 # of These Stage 2 Pressure Ulcers Present on Admission: 0 # Stage 3 Pressure Ulcers-Discharge: 0 # of These Stage 3 Pressure Ulcers Present on Admission: 0 # Stage 4 Pressure Ulcers-Discharge: 0 # of These Stage 4 Pressure Ulcers Present on Admission: 0 # Unstageable Pressure Ulcers (Non-remove Dress)-Discharge: 0 # These Unstageable Pressure Ulcers (NRD)-Present on Admit: 0 # Unstageable Pressure Ulcers (Slough/Eschar)-Discharge: 0 # These Unstageable Pressure Ulcers(Slough) Present on Admit: 0 # Unstageable Pressure Ulcers (Deep Tissue Injury)-Discharge: 0 # These Unstageable Pressure Ulcers (DTI) Present on Admit: 0
--- NOTE | 2018-10-15 08:39 | SOAPPROG ---
SOAP Progress Note Assessment/Plan: 58-year-old male with left temporal and parietal intraparenchymal hemorrhage on 09/28/2018 presented with difficulty speaking. Impairments in mobility, self- care, communication and cognition. Today's update: Continues to make neurological progress as well as rehab progress. He is essentially independent on the unit and doing well. Planning for discharge tomorrow. He will have follow-up with multiple providers as outlined in the discharge paperwork. A total of 35 min was spent on the floor in the care of the patient, the majority of which was spent in counseling coordination of care regarding rehabilitation progress and discharge planning. Additional issues reviewed without change today include hypothyroidism, headaches, secondary prophylaxis. 10/13/18 09:26 10/15/18 08:37 Subjective: Chief complaint: Rehabilitation progress, discharge planning No acute events overnight. Patient denies any new shortness of breath or chest pain, no new numbness, tingling, or weakness. He is looking forward to going home. He notes that overall as progress is continuing and he is feeling confident going home. Working with staff to coordinate discharge. Objective: Vital Signs Temp Pulse Resp BP Pulse Ox 36.5 C 61 16 107/77 96 10/15/18 08:00 10/15/18 08:00 10/15/18 08:00 10/15/18 08:00 10/15/18 08:00 10/14/18 10/15/18 10/16/18 05:59 05:59 05:59 Intake Total 440 1100 Balance 440 1100 Physical Exam - Physical Exam General Appearance: WD/WN, alert, no apparent distress EENT: No scleral icterus (R), No scleral icterus (L) Respiratory: No respiratory distress, No accessory muscle use Skin: normal color, warm/dry, No cyanosis, No diaphoresis Extremities: No pedal edema, No swelling Neuro/Psych: alert, normal mood/affect, speech abnormalities (Improving word- finding difficulty, ongoing expressive aphasia) ICD10 Worksheet Patient Problems: Problems Problem Status Onset Hemorrhagic cerebrovascular accident (CVA) Acute
[2018-10-15] MEDS: LOSARTAN POTASSIUM 50 MG TAB PO SCH (08:50)
[2018-10-15] MEDS: ATORVASTATIN CALCIUM 20 MG TAB PO SCH (08:50)
[2018-10-15] MEDS: OMEGA-3 FATTY ACIDS 1,000 MG CAP PO SCH (08:50)
[2018-10-15] MEDS: ASPIRIN EC 81 MG TAB PO SCH (08:50)
[2018-10-16] MEDS: LEVOTHYROXINE 75 MCG TAB PO SCH (07:23)
[2018-10-16 07:25] VITALS: BP 133/83
[2018-10-16] MEDS: ATORVASTATIN CALCIUM 20 MG TAB PO SCH (08:00)
[2018-10-16] MEDS: ASPIRIN EC 81 MG TAB PO SCH (08:01)
[2018-10-16] MEDS: OMEGA-3 FATTY ACIDS 1,000 MG CAP PO SCH (08:01)
[2018-10-16] MEDS: LOSARTAN POTASSIUM 50 MG TAB PO SCH (08:01)
--- NOTE | 2018-10-16 14:53 | GDS ---
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 OTHER DISCHARGE DIAGNOSES: 1. Hypertension. 2. Hypothyroidism. CONSULTATIONS: There were none. COMPLICATIONS: There were none. PROCEDURES: There were none. HISTORY AND HOSPITAL COURSE: This patient was admitted from [facility] on 10/06/2018. He had presented there on 09/28/2018, with difficulty speaking. He was found to have systolic blood pressures in the 170s. Brain imaging showed acute intraparenchymal hemorrhage in the left temporal and parietal lobes. He initially required IV nicardipine to control his blood pressure, but he was subsequently controlled on oral medications. He was cleared by Neurosurgery and resumed his prior aspirin at 81 mg daily. He had titration of his blood pressure medications. He had been on an amlodipine/ olmesartan combination with 5 mg of amlodipine. This was increased to 10 mg, and he was on 25 mg of losartan when he was discharged from the hospital. He did well in rehabilitation. His initial functional independence measure was 91 on 10/09/2018, which is consistent with assisted living level of care. This improved to 105 on 10/14/2018, which is consistent with independent living. He was independent in his room and on the unit 24 hours a day. He was independent with activities of daily living. He was able to do a meal preparation with Occupational Therapy, with only distant supervision. He was noted to have a right visual field deficit. He had severe expressive and moderate receptive aphasia. There was some improvement, but slow, with Speech and Language Pathology. He especially had improvement in social speech. He was able to read single words, but had difficulty with sentences or paragraphs. Regarding hypertension, he remained on amlodipine 10 mg per day. Losartan was titrated from 25 mg daily to 50 mg daily. On the day of discharge, his blood pressure is 133/83. Regarding etiology of CVA, he had a history of a patent foramen ovale, which his reported was seen on one echocardiogram but not on others. Brain imaging was consistent with possibility of embolic CVA. Patient and were advised to consider further evaluation by Cardiology to establish whether there might have been a cardioembolic source of his stroke. DISCHARGE PLAN: CONDITION UPON DISCHARGE: Good. DISPOSITION: Home with his . DIET: Regular. ACTIVITY: Ad nathaly, but he is not to be driving. MEDICATIONS UPON DISCHARGE: 1. Amlodipine 10 mg p.o. daily. 2. Aspirin 81 mg p.o. daily. 3. Atorvastatin 20 mg p.o. daily. 4. Levothyroxine 75 mcg p.o. daily. 5. Losartan 50 mg p.o. daily. ISSUES TO BE ADDRESSED AT FOLLOWUP: 1. Aphasia, severe expressive and moderate receptive. Continue speech and language pathology. 2. Right visual field deficit. He will follow up with neuro-freelance photographer, Dr. Wilber Kruse. 3. Hypertension. He can follow up with his primary care provider, Dr. Purvis. 4. Status post hemorrhagic stroke. He can follow up with neurosurgeon, Dr. Michele Loyd, and neurologist, Dr. Jae Rocha. 5. Possible embolic stroke. He is advised to have a followup with Cardiology to rule out a cardioembolic etiology. /[id number]/MODL and [id number]/MODL [facility]
== END 2018-10-16 13:05 | disposition home or self-care (01) | DRG 57 ==
LOC: BREH 12:32
PROVIDERS: ADMIT Internal Medicine; ATTEND Internal Medicine
DX: I69.320 Aphasia following cerebral infarction (principal); M21.371 Foot drop, right foot; I10 Essential (primary) hypertension; E03.9 Hypothyroidism, unspecified; R51 Headache
CPT/HCPCS: 92507-GN; 92523-GN; 97110-GP; 97112-GP; 97161-GP; 97166-GO; 97530-GO; 97530-GP; 97535-GO; 99366-GN; 99366-GO; G0008; G0515-GO